=== PATIENT | female | born 1985 | race Caucasian/White ===

== ENCOUNTER → 2023-11-29 14:58 | Outpatient (REF) | payer BC, SELFPAY | LOC: RAD 14:58 | PROVIDERS: ATTENDING PHYSICIAN Physician Assistant; FAMILY PHYSICIAN Family Medicine | DX: M35.2 Behcet's disease (principal); M79.669 Pain in unspecified lower leg | CPT/HCPCS: 93970 ==

== ENCOUNTER 2023-12-04 14:08 | Emergency (ER) | payer BC, SELFPAY ==
[2023-12-04 14:18] VITALS: BP 132/80
--- NOTE | 2023-12-04 19:01 | ED.GENMED ---
History of Present Illness
General
Chief Complaint: Weakness
Source: patient
Exam Limitations: none
Time Seen by Provider: 12/04/23 18:42
Travel History
Have you had any contact with someone who has COVID-19?: No
Do you have any symptoms of coronavirus? Fever > 100 degrees, chills, cough, shortness of breath, sore throat, loss of taste or smell, muscle aches, or headache?: No
History of Present Illness
History of Present Illness:
This is a 38 year old female that comes in with multiple complaints. State that she has pain from her hips to her toes it aches. State that her arms hurt from her shoulders down and she is nauseated. States that she has chest discomfort like
tightness and she is SOB. States that this started last week. Patient went to see the PCP last Saturday and her Acquisition Specialist on Saturday. States that they did blood work and she was told that this was normal. States that the right sided feels worse
then the left. States that this does feel like when she had Lyme disease. States that she has been hot and cold. Chest tightness, SOB, nausea, headache and dizziness. Denies any fever, chills, abd pain, vomiting, diarrhea, urinary burning.
Past History
Past History
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
ED Past Surgical History: None
Social History
Tobacco: Former smoker
Alcohol: Occasional
Personal: Single
Living: with family
Family History
Family History: Diabetes
Review of Systems
Review of Systems
All Other Systems: ROS reviewed and negative except as documented in HPI and ROS
Constitutional: Reports other (Feels hot and cold); Denies fever or chills
EENT: Reports no symptoms
Respiratory: Reports trouble breathing; Denies cough
Cardiac: Reports chest pain (Tightness)
ABD/GI: Reports nausea; Denies abdominal pain, vomiting or diarrhea
: Reports no symptoms; Denies dysuria, frequency or urgency
Musculoskeletal: Reports other (arms and leg pain)
Skin: Reports no symptoms
Neurological: Reports dizzy and headache
Psychiatric: Reports no symptoms
Phy Exam
General Physical Exam
General Presentation: well appearing and no apparent distress
General age: appears stated age
General Skin: warm and dry
General Habitus: normal
General Mental: alert
General Hydration: appears well hydrated
ENT Exam
ENT Exam: TM's normal, pharynx normal and neck supple
Eye Exam
Eye Exam: PERRL and EOMI
Cardiovascular Exam
Cardiovascular Exam: regular rate/rhythm, no edema, no murmur and normal peripheral pulses
Pulmonary Exam
Pulmonary Exam: lungs clear, no respiratory distress, no rales, chest non tender, no crackles, no rhonchi, no wheezing and no cough
Gastrointestinal Exam
Gastrointestinal Exam: normal bowel sounds, non tender, soft, no organomegaly, no pulsatile mass and non distended
NIH Stroke Score
Level of Consciousness: 0 - Alert
LOC questions: 0-Answers both correctly
LOC Commands: 0-Performs both correctly
Best Gaze: 0-Normal
Visual Khan: 0=Normal, no visual loss
Facial palsy: 0=Normal, symmetrical
Motor - Right Arm: 0=No drift 10 seconds
Motor - Left Arm: 0=No drift 10 seconds
Motor - Right Le-No drift 5 seconds
Motor - Left Le-No drift 5 seconds
Limb Ataxia: 0-Absent
Sensation: 0-Normal
Best Language: 0-No aphasia
Dysarthria: 0-Normal
Extinction and Inattention: 0-No abnormality
Total Score:: 0
Musculoskeletal Exam
Musculoskeletal Exam: full ROM and no edema
Skin Exam
Skin Exam: normal color, warm/dry, no rash and no petechia
Psychiatric Exam
Psychiatric Exam: normal mood/affect
Course
Orders/Labs/Results
Orders:
Orders
12/04/23 19:00
CT Head W/o Iv Contrast Urgent
Comment:
Reason For Exam: Headache, dizziness,
Test Result ONCE
12/04/23 19:04
CR Chest - 2 Views Urgent
Comment:
Reason For Exam: SOB
12/04/23 19:05
Electrocardiogram (*1) Urgent
Reason for Study: Chest Pain
EKG- Treatment ONCE
12/04/23 19:11
Acetaminophen [Tylenol] 1,000 mg PO NOW STA
Ketorolac [Toradol] 30 mg IV NOW STA
12/04/23 19:15
CRP [C-Reactive Protein] Urgent
Complete Blood Count/With Diff Urgent
Comprehensive Metabolic Panel Urgent
D-Dimer Urgent
HCG, Serum Qualitative Screen Urgent
Lyme Progressive Urgent
Sed Rate [Erythrocyte Sed Rate] Urgent
12/04/23 19:41
Troponin I Urgent
Abnormal Lab Results
12/04/23
19:15
MPV 11.1 H fL
(7.4-10.4)
Potassium 3.4 L mmol/L
(3.5-5.1)
Glucose 129 H mg/dl
(70-99)
AST 41 H U/L
(14-36)
ALT 39 H U/L
(0-35)
12/04/23 19:15
12/04/23 19:15
Glucose nonfasting(patient is a diabetic), AST/ALT mildly elevated. Sed rate normal at 12, D-dimer normal <0.27, Troponin <0.012, CRP normal at <5.0. HCG negative.
Vital Signs
Initial and Last Documented VS:
Initial Vital Signs
Temp Pulse Resp BP Pulse Ox
98.4 F 92 18 132/80 98
12/04/23 14:18 12/04/23 14:18 12/04/23 14:18 12/04/23 14:18 12/04/23 14:18
Last Documented Vital Signs
Temp Pulse Resp BP Pulse Ox
98.4 F 92 18 132/80 98
12/04/23 14:18 12/04/23 14:18 12/04/23 14:18 12/04/23 14:18 12/04/23 14:18
MDM/Problems Addressed
Differential Diagnosis Includes:
Lyme disease flare,
MDM/Problems Addressed:
This is a 38 year old female that comes in with multiple complaints. States that for the past week she has arm and leg pain, gets hot and cold, Chest tightness, SOB, nausea, headache and dizziness. Patient has seen her PCP and her Acquisition Specialist.
Will check labs, CT head and give pain medication.
Back to see patient. Explained that her blood work is normal along with the CT of the head and chest x-ray. Patient has stated that she feels that this feels like her Lyme's. Offered patient antibiotic and if this make her feel better she can follow
up with the PCP in 2-3 days for further evaluation and full prescription for Antibiotic. Patient would like to try this. Patient to return with any concerns.
Chronic conditions affecting care: DM
Acute Exacerbation and/or Progression of Chronic Illness: Other (Lyme's disease)
*Radiology
Radiology exam reviewed: preliminary read by ED provider (Chest- Negative for any cardiopulmonary disease. ) and radiology read reviewed (Chest-Unremarkable exam CT head-No acute intracranial abnormality noted. )
*Pulse Oximetry
Patient hypoxic: no
*EKG
Interpreted by ED Provider?: Yes
Heart Rate: 87
Rate: normal
Rhythm: sinus
[place]: normal axis
Interval: normal interval
QRS Pattern: normal QRS
Ischemia: no ischemia
*Hand Twister Interpretation
Rate: Hand Twister- N/A
*Critical Care Note
Total Time (30-74mins, 75-104mins- exclusive of procedures): Not Applicable
ED Attending Note
-
Portions of this chart may have been created with voice recognition software.� Occasional wrong word or��sound alike� substitutions may have occurred due to the inherent limitations of voice recognition software.
Discharge Plan
Departure
Patient Disposition: Home (Routine Discharge)
Date of Disposition: 12/04/23
Time of Disposition: 22:01
Patient with high blood pressure during this ER visit?: Yes
Condition: Good
Covid-19: Not Applicable
Discharge Problem:
Generalized body aches
Instructions: Lyme Disease (DC), BLOOD PRESSURE
Prescriptions:
New
doxycycline hyclate 100 mg capsule
100 mg PO BID Qty: 20 0RF
No Action
Novolog Int.Commercial Credit Reviewer.Sp
0 pump SC PRN PRN (Reason: INSULIN PUMP)
Patient Comments:
patient is on insulin pump. She states she is on a basal rate of 20u a day. Averages about 35-60 units per day.
alprazolam [Xanax] 0.5 mg Tablet
0.5 mg PO PRN PRN (Reason: as directed)
Celexa
1 tab PO DAILY
Referrals:
NONE,* [Active] -
Activity Restrictions/Additional Instructions:
As discussed, your blood work shows that your liver enzymes are slightly elevated. Your Inflammatory markers are normal along with your chest x-ry and CT of the head. A lyme titer was sent and this is pending. However, you have states that this
feels like your lyme's disease. You have been given your first dose of antibiotic here. A prescription has been sent to your pharmacy. If this is lyme's disease you should noticed a difference in the next few days. Please follow up with the family
doctor as he would then have to give your another prescription for the full course of antibiotic. IF YOU HAVE ANY OTHER CONCERNS PLEASE RETURN TO THE EMERGENCY ROOM.
Interventions
Interventions:
*Risk Screen - Suicide Last Done: 12/04/23 14:18
*Neglect/Abuse Screening Last Done: 12/04/23 14:18
*ED COVID-19 Vaccine History Last Done: 12/04/23 14:18
ED- Cardiac Assessment Last Done: 12/04/23 19:37
ED- Neurological Assessment Last Done: 12/04/23 19:37
ED- Pulmonary Assessment Last Done: 12/04/23 19:37
Discharge Date and Time
Print Language: GREEK
[2023-12-04 19:21] LABS: % Basophils 0.4 % (0-2); % Eosinophils 2.1 % (0-6); % Immature Granulocytes 0.2 % (0-0.5); % Lymphocytes 29.4 % (20.5-51.1); % Monocytes 6.3 % (1.7-9.3); % Neutrophils 61.6 % (42.2-75.2); Absolute Eosinophils 0.2 10^3/uL (0-0.7); Absolute Lymphocytes 2.4 10^3/uL (1.2-3.4); Absolute Monocytes 0.5 10^3/uL (0.1-0.6); Hematocrit 39.4 % (37.0-47.0); Hemoglobin 13.4 g/dL (12.0-16.0); Mean Corpuscular Hgb 28.3 pg (27.0-31.0); Mean Corpuscular Volume 83.3 fL (81.0-99.0); Mean Platelet Volume 11.1 fL (7.4-10.4); Nucleated Red Blood Cells % 0 %; Platelet Count 226 10^3/uL (130-400); Red Blood Cell Count 4.73 10^6/uL (4.20-5.40); White Blood Cell Count 8.1 10^3/uL (4.8-10.8)
[2023-12-04] MEDS: TYLENOL 1000 MG PO (19:25)
[2023-12-04] MEDS: TORADOL 30 MG IV (19:26)
[2023-12-04 19:37] LABS: Erythrocyte Sed Rate 12 mm/hour (0-20)
[2023-12-04 19:38] LABS: HCG, Serum Qualitative Screen Negative
[2023-12-04 19:39] LABS: D-Dimer < 0.27 ug/mlFEU (0.00-0.50)
[2023-12-04 19:40] LABS: ALT (SGPT) 39 U/L (0-35); AST (SGOT) 41 U/L (14-36); Albumin 4.2 g/dl (3.5-5.0); Alkaline Phosphatase 93 U/L (38-126); Blood Urea Nitrogen 12 mg/dl (7-17); Calcium 9.4 mg/dl (8.4-10.2); Carbon Dioxide 29 mmol/L (22-30); Chloride 100 mmol/L (98-107); Glucose 129 mg/dl (70-99); Potassium 3.4 mmol/L (3.5-5.1); Sodium 136 mmol/L (135-145); Total Bilirubin 0.5 mg/dl (0.2-1.3); Total Protein 7.3 g/dl (6.3-8.2); eGFR > 60.00
[2023-12-04 19:43] LABS: C-Reactive Protein < 5.00 mg/L (0.0-10.00)
[2023-12-04 20:14] LABS: Troponin I < 0.012 ng/ml
[2023-12-04 22:10] VITALS: BP 102/66
[2023-12-04] MEDS: VIBRAMYCIN 100 MG PO (22:11)
[2023-12-05 15:57] LABS: Lyme Antibody Screen, EIA Negative (Negative)
== END 2023-12-04 22:12 | disposition home or self-care (01) ==
LOC: EMR 14:08
PROVIDERS: Clinical Nurse Specialist Family Health; EMERGENCY PHYSICIAN Emergency Medicine; FAMILY PHYSICIAN Family Medicine
DX: R52 Pain, unspecified (principal); R53.1 Weakness; J45.909 Unspecified asthma, uncomplicated; E11.9 Type 2 diabetes mellitus without complications; Z83.3 Family history of diabetes mellitus; Z87.891 Personal history of nicotine dependence
CPT/HCPCS: 99284; 96374; 70450; 71046; 80053; 84484; 84703; 85025; 85379; 85652; 86140; 86618; 93005

== ENCOUNTER 2024-03-30 14:53 | Emergency (ER) | payer BC, SELFPAY ==
[2024-03-30] VITALS (8 sets, daily range): BP systolic 92–127; BP diastolic 58–79; BMI 27.7
[2024-03-30 15:12] LABS: Glucose - Point of Care 235 mg/dl (70-99)
[2024-03-30 15:29] LABS: % Basophils 0.3 % (0-2); % Eosinophils 0.9 % (0-6); % Immature Granulocytes 0.4 % (0-0.5); % Lymphocytes 10.1 % (20.5-51.1); % Monocytes 5.5 % (1.7-9.3); % Neutrophils 82.8 % (42.2-75.2); Absolute Eosinophils 0.1 10^3/uL (0-0.7); Absolute Monocytes 0.6 10^3/uL (0.1-0.6); Absolute Neutrophils 8.3 10^3/uL (1.4-6.5); Hematocrit 37.6 % (37.0-47.0); Hemoglobin 12.8 g/dL (12.0-16.0); Mean Corpuscular Hgb 28.1 pg (27.0-31.0); Mean Corpuscular Volume 82.5 fL (81.0-99.0); Mean Platelet Volume 11.6 fL (7.4-10.4); Nucleated Red Blood Cells % 0 %; Platelet Count 221 10^3/uL (130-400); Red Blood Cell Count 4.56 10^6/uL (4.20-5.40); Red Cell Dist. Width 12.8 % (11.5-14.5)
[2024-03-30 15:37] LABS: ALT (SGPT) 21 U/L (0-35); AST (SGOT) 24 U/L (14-36); Albumin 4.4 g/dl (3.5-5.0); Alkaline Phosphatase 98 U/L (38-126); Blood Urea Nitrogen 15 mg/dl (7-17); Calcium 9.2 mg/dl (8.4-10.2); Carbon Dioxide 23 mmol/L (22-30); Chloride 100 mmol/L (98-107); Glucose 248 mg/dl (70-99); Sodium 136 mmol/L (135-145); Total Bilirubin 0.5 mg/dl (0.2-1.3); eGFR > 60.00
[2024-03-30 19:08] LABS: Lipase 63 U/L (23-300)
[2024-03-30] MEDS: ZOFRAN 4 MG IV (19:26)
[2024-03-30] MEDS: NSS 1000 IV (19:26)
[2024-03-30 19:52] LABS: TSH Reflex To Free T4 1.67 uIU/ml (0.47-4.68)
[2024-03-30 20:20] LABS: Glucose - Point of Care 78 mg/dl (70-99)
--- NOTE | 2024-03-30 21:54 | ED.GENMED ---
History of Present Illness
General
Chief Complaint: Blood Pressure Problem
Source: patient
Exam Limitations: none
Time Seen by Provider: 03/30/24 17:26
Nursing documentation reviewed up to this point in time: agreed with
History of Present Illness
History of Present Illness:
Patient is a 38-year-old female past medical history of diabetes ADHD anxiety depression presenting to the emergency department today with concerns of feeling confused at times of the past few days has noticed her sugars been somewhat erratic and
has had nausea. She started a new medication, Seroquel which she has taken a few times over the past few days as well that seem to make symptoms worse. She has noticed that her heart rate and blood pressure sometimes have been elevated at home as
well. Denies any chest pain shortness of breath numbness weakness nausea vomiting recent illness or fevers.
Past History
Past History
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
ED Past Surgical History: None
Social History
Tobacco: Former smoker
Alcohol: Occasional
Personal: Single
Living: with family
Family History
Family History: Diabetes
Review of Systems
Review of Systems
Allergies reviewed?: Yes
All Other Systems: ROS reviewed and negative except as documented in HPI and ROS
Phy Exam
Physical Exam
Physical Exam:
GENERAL: Alert , in no apparent distress
EYE: pupils equal and reactive
NECK: Supple, no significant adenopathy.
ENT: o/p clr, mmm.
CARDIAC: Regular rate and rhythm .
LUNGS: Clear breath sounds bilaterally, no acute respiratory distress, no wheezes/rales/rhonchi
ABDOMEN: Soft, without focal tenderness, no r/g, no cvat
NEUROLOGICAL: Alert and oriented, no focal neuro deficits 5 out of 5 upper and lower extremity strength normal sensation when palpating bilaterally normal finger-nose and [id number] no pronator drift
SKIN: Warm and dry, skin intact.
MUSCULOSKELETAL: No edema, well perfused.
PSYCH: Normal and appropriate interaction.
Course
Orders/Labs/Results
Orders:
Orders
03/30/24 15:14
Complete Blood Count/With Diff Urgent
Comprehensive Metabolic Panel Urgent
Lipase Urgent
Comment: ADD ON
TSH Reflex To Free T4 Urgent
Comment: ADD ON
03/30/24 18:32
Add On- LAB Urgent
Tests Added?: tsh free t4, lipase
EKG [Electrocardiogram (*1)] Urgent
Reason for Study: Fatigue / Weakness
EKG- Treatment ONCE
Urinalysis Reflex To Culture Urgent
Ondansetron Injectable [Zofran] 4 mg IV NOW STA
03/30/24 18:33
0.9% Sodium Chloride 1000 ml [Nss] 1,000 ml IV BOLUS
Abnormal Lab Results
03/30/24 03/30/24
15:07 15:14
MPV 11.6 H fL
(7.4-10.4)
Absolute Neuts (auto) 8.3 H 10^3/uL
(1.4-6.5)
Absolute Lymphs (auto) 1.0 L 10^3/uL
(1.2-3.4)
Neutrophils % 82.8 H %
(42.2-75.2)
Lymphocytes % 10.1 L %
(20.5-51.1)
Glucose 248 H mg/dl
(70-99)
POC Glucose 235 H mg/dl
(70-99)
03/30/24 15:14
03/30/24 15:14
Vital Signs
Initial and Last Documented VS:
Initial Vital Signs
Temp Pulse Resp BP Pulse Ox
98.3 F 110 18 127/79 98
03/30/24 15:08 03/30/24 15:08 03/30/24 15:08 03/30/24 15:08 03/30/24 15:08
Last Documented Vital Signs
Temp Pulse Resp BP Pulse Ox
98.3 F 74 13 98/67 98
03/30/24 15:08 03/30/24 22:06 03/30/24 22:06 03/30/24 22:06 03/30/24 22:06
MDM/Problems Addressed
MDM/Problems Addressed:
38-year-old female presenting to the emergency department today with concerns of intermittent confusion at home. Not seem to be confused here is fully alert and oriented following directions normally carry on with normal conversation here at normal
neurologic evaluation initially proving without specific treatment. Initial sugar level somewhat elevated in the 200s but otherwise no signs of DKA or did not electrolyte abnormalities. Normal EKG. Patient with no evidence of medical emergency no
indication for brain imaging at this time she was advised for close outpatient follow-up return precautions were given.
*Critical Care Note
Total Time (30-74mins, 75-104mins- exclusive of procedures): Not Applicable
ED Attending Note
-
Portions of this chart may have been created with voice recognition software.� Occasional wrong word or��sound alike� substitutions may have occurred due to the inherent limitations of voice recognition software.
Discharge Plan
Departure
Patient Disposition: Home (Routine Discharge)
Date of Disposition: 03/30/24
Time of Disposition: 21:54
Patient with high blood pressure during this ER visit?: No
Condition: Good
Covid-19: Not Applicable
Discharge Problem:
Confusion
Prescriptions:
No Action
Novolog Int.Insulation Board Calender Operator.Sp
0 pump SC PRN PRN (Reason: INSULIN PUMP)
Patient Comments:
patient is on insulin pump. She states she is on a basal rate of 20u a day. Averages about 35-60 units per day.
alprazolam [Xanax] 0.5 mg Tablet
0.5 mg PO PRN PRN (Reason: as directed)
Celexa
1 tab PO DAILY
doxycycline hyclate 100 mg capsule
100 mg PO BID Qty: 20 0RF
Referrals:
Xiao Garnett MD [Active] - Follow up in 5-7 days
Brody Bailey MD [Active] - Follow up in 5-7 days
Jaylen Herrera, DO [Family Provider] -
Activity Restrictions/Additional Instructions:
You came to the emergency department today with concerns of altered mentation. Here your assessment was reassuring medically. Please follow closely with your psychiatrist as well as neurology. Return to the emergency department any worsening, new
or concerning symptoms.
Interventions
Interventions:
*Risk Screen - Suicide Last Done: 03/30/24 15:08
*General Assessment Last Done: 03/30/24 19:00
*Neglect/Abuse Screening Last Done: 03/30/24 15:08
ED- Fall Risk Assessment Last Done: 03/30/24 19:00
*ED COVID-19 Vaccine History Last Done: 03/30/24 19:00
*Nursing Disposition Last Done: 03/30/24 22:09
ED- Pulmonary Assessment Last Done: 03/30/24 19:00
ED- Neurological Assessment Last Done: 03/30/24 19:00
ED- Cardiac Assessment Last Done: 03/30/24 19:00
Discharge Date and Time
Print Language: [place]
== END 2024-03-30 22:10 | disposition home or self-care (01) ==
LOC: EMR 14:53
PROVIDERS: EMERGENCY PHYSICIAN Emergency Medicine; FAMILY PHYSICIAN Family Medicine
DX: R41.0 Disorientation, unspecified (principal); E11.9 Type 2 diabetes mellitus without complications; F90.9 Attention-deficit hyperactivity disorder, unspecified type; F41.8 Other specified anxiety disorders; J45.909 Unspecified asthma, uncomplicated; Z83.3 Family history of diabetes mellitus; Z87.891 Personal history of nicotine dependence
CPT/HCPCS: 99283; 96374; 96361; 80053; 82962; 83690; 84443; 85025; 93005

== ENCOUNTER 2024-04-03 10:07 | Emergency (ER) | payer BC, SELFPAY ==
[2024-04-03 10:12] VITALS: BP 127/92
[2024-04-03 10:43] VITALS: BP 118/73
[2024-04-03 11:00] VITALS: BP 119/79
[2024-04-03 11:14] VITALS: BMI 27.4
[2024-04-03 11:40] LABS: % Basophils 0.4 % (0-2); % Eosinophils 0.9 % (0-6); % Immature Granulocytes 0.4 % (0-0.5); % Lymphocytes 19.7 % (20.5-51.1); % Monocytes 5.1 % (1.7-9.3); % Neutrophils 73.5 % (42.2-75.2); Absolute Eosinophils 0.1 10^3/uL (0-0.7); Absolute Lymphocytes 1.5 10^3/uL (1.2-3.4); Absolute Monocytes 0.4 10^3/uL (0.1-0.6); Absolute Neutrophils 5.5 10^3/uL (1.4-6.5); Hematocrit 40.6 % (37.0-47.0); Hemoglobin 14.1 g/dL (12.0-16.0); Mean Corp Hgb Conc. 34.7 g/dL (33.0-37.0); Mean Corpuscular Volume 83.5 fL (81.0-99.0); Nucleated Red Blood Cells % 0 %; Platelet Count 247 10^3/uL (130-400); Red Blood Cell Count 4.86 10^6/uL (4.20-5.40); Red Cell Dist. Width 12.8 % (11.5-14.5); White Blood Cell Count 7.4 10^3/uL (4.8-10.8)
[2024-04-03 11:53] LABS: ALT (SGPT) 20 U/L (0-35); AST (SGOT) 24 U/L (14-36); Albumin 4.8 g/dl (3.5-5.0); Alkaline Phosphatase 106 U/L (38-126); Blood Urea Nitrogen 15 mg/dl (7-17); Calcium 9.7 mg/dl (8.4-10.2); Carbon Dioxide 24 mmol/L (22-30); Chloride 102 mmol/L (98-107); Estimated Creatinine Clearance 110 ml/min; Glucose 189 mg/dl (70-99); Potassium 4.3 mmol/L (3.5-5.1); Sodium 138 mmol/L (135-145); Total Bilirubin 0.5 mg/dl (0.2-1.3); Total Protein 7.8 g/dl (6.3-8.2); eGFR > 60.00
[2024-04-03 12:00] VITALS: BP 117/75
[2024-04-03 12:03] LABS: Troponin I < 0.012 ng/ml
[2024-04-03 14:02] VITALS: BP 101/72
--- NOTE | 2024-04-03 15:43 | ED.GENMED ---
History of Present Illness
General
Chief Complaint: Dizziness
Source: patient and family (Mother)
Exam Limitations: none
Time Seen by Provider: 04/03/24 11:15
Nursing documentation reviewed up to this point in time: agreed with
History of Present Illness
History of Present Illness:
38-year-old female with past medical history of insulin diabetes presents to the emergency room for flulike syndrome over the past week. Patient reports myalgias, fatigue, lightheadedness, cough, sore throat, ear fullness and aching in the ears.
She reports she has had subjective fever and chills. She has had some brain fog. She also reports some chest discomfort that has been constant at least since yesterday. Denies any shortness of breath. Denies any GI symptoms. Denies any other
complaints. She does have a young son in school but no known sick contacts otherwise.
Past History
Past History
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
ED Past Surgical History: None
Social History
Tobacco: Former smoker
Alcohol: Occasional
Personal: Single
Living: with family
Family History
Family History: Diabetes
Review of Systems
Review of Systems
All Other Systems: ROS reviewed and negative except as documented in HPI and ROS
Constitutional: Reports fever, fatigue and chills
EENT: Reports sore throat
Respiratory: Reports cough; Denies trouble breathing
Cardiac: Reports chest pain; Denies palpitations
ABD/GI: Denies abdominal pain, nausea or vomiting
: Denies flank pain
Musculoskeletal: Reports muscle pain (Myalgias); Denies neck pain or back pain
Neurological: Reports dizzy
Phy Exam
Physical Exam
Physical Exam:
General: Awake, alert, oriented x3; no acute distress
Head: Normocephalic, atraumatic
Eyes: Conjunctiva normal, sclera anicteric
Ears: Some bulging and fullness of the left TM but no erythema
Throat: Airway intact, handling secretions, no significant tonsillar enlargement or exudate, moist mucous membranes
Neck: Trachea midline, supple without meningismus
Lungs: Faint left upper lung wheeze appreciated but lungs otherwise clear, normal respiratory rate, normal pulse ox
Heart: Regular rate and rhythm, no murmurs, gallops, or rubs
Abd: Soft, non distended, nontender
Neuro: No gross deficits
Skin: no rash
Extremities: No edema in extremities, equal pulses in all extremities
Scores
Heart Failure Risk
Heart Failure Risk Score: Not Applicable
Heart Score for Chest Pain Patients
STEMI patient?: Not applicable
Withdrawal Assessment of Alcohol
Withdrawal Assessment Completed?: Not applicable
Course
Orders/Labs/Results
Orders:
Orders
04/03/24 10:08
Electrocardiogram (*1) Urgent
Reason for Study: Chest Pain
04/03/24 10:09
EKG- Treatment ONCE
04/03/24 11:28
Complete Blood Count/With Diff Urgent
Comprehensive Metabolic Panel Urgent
Troponin I Urgent
04/03/24 11:38
CR Chest - 2 Views Urgent
Comment:
Reason For Exam: chest pain
Abnormal Lab Results
04/03/24
11:28
MPV 11.0 H fL
(7.4-10.4)
Lymphocytes % 19.7 L %
(20.5-51.1)
Glucose 189 H mg/dl
(70-99)
04/03/24 11:28
04/03/24 11:28
Vital Signs
Initial and Last Documented VS:
Initial Vital Signs
Temp Pulse Resp BP Pulse Ox
37.1 C 86 18 127/92 95
04/03/24 10:12 04/03/24 10:12 04/03/24 10:12 04/03/24 10:12 04/03/24 10:12
Last Documented Vital Signs
Temp Pulse Resp BP Pulse Ox
37.1 C 81 15 101/72 98
04/03/24 10:12 04/03/24 14:02 04/03/24 14:02 04/03/24 14:02 04/03/24 14:02
MDM/Problems Addressed
Differential Diagnosis Includes:
Viral syndrome, bronchitis, otitis, pneumonia
MDM/Problems Addressed:
38-year-old female presents for evaluation of flulike illness as above that she has had some chest discomfort over the past few days as well. Vitals normal, exam as above. She had an EKG which showed no acute ischemia. She had labs sent off
including a CBC and a CMP which were unremarkable. She had an undetectable troponin. Chest x-ray shows no acute disease. Suspect likely viral syndrome possibly with mild bronchitis given cough and some mild chest discomfort with a faint upper
lung wheeze on exam. She has normal vitals and only a faint wheeze on exam�hesitant to start steroid in an insulin-dependent diabetic who is already mildly hyperglycemic, recommended watchful waiting and supportive care with Tylenol/Motrin and
plenty of fluids. She also has some ear aching and has fullness of the left TM�will cover with antibiotics for possible otitis media. Stable for discharge, follow-up with PCP.
Chronic conditions affecting care:
Insulin-dependent diabetes impacted care as above
*Radiology
Radiology exam reviewed: preliminary read by ED provider (No acute disease) and radiology read reviewed
*Pulse Oximetry
Patient hypoxic: no
*EKG
Interpreted by ED Provider?: Yes
Heart Rate: 95
Rate: normal
Rhythm: sinus
[place]: normal axis
Interval: normal interval
QRS Pattern: normal QRS
Ischemia: no ischemia
*Critical Care Note
Total Time (30-74mins, 75-104mins- exclusive of procedures): Not Applicable
Data Reviewed
Review of Other/Old Records Reveals: Labs and Records
Source: patient and family
ED Attending Note
-
Portions of this chart may have been created with voice recognition software.� Occasional wrong word or��sound alike� substitutions may have occurred due to the inherent limitations of voice recognition software.
Discharge Plan
Departure
Patient Disposition: Home (Routine Discharge)
Date of Disposition: 04/03/24
Time of Disposition: 13:54
Patient with high blood pressure during this ER visit?: No
Discharge Problem:
Acute viral syndrome, Bronchitis, Otitis media
Instructions: Bronchitis, Adult ED, Fluid in the Ear ED
Prescriptions:
New
cefdinir 300 mg capsule
300 mg PO BID Qty: 14 0RF
No Action
Novolog Int.Supervisor Intermediates.Sp
0 pump SC PRN PRN (Reason: INSULIN PUMP)
Patient Comments:
patient is on insulin pump. She states she is on a basal rate of 20u a day. Averages about 35-60 units per day.
alprazolam [Xanax] 0.5 mg Tablet
0.5 mg PO PRN PRN (Reason: as directed)
Celexa
1 tab PO DAILY
doxycycline hyclate 100 mg capsule
100 mg PO BID Qty: 20 0RF
Referrals:
Jaylen Herrera DO [Family Provider] - Follow up in 5-7 days
Activity Restrictions/Additional Instructions:
Thank you for visiting the Emergency Department at [facility].
1. Please schedule a follow up appointment as directed. Call first thing tomorrow morning to make an appointment.
2. If indicated, please take your medications as instructed and indicated on discharge paperwork.
3. If any of your symptoms do not improve, or persist, or become more severe within 6-12 hours, please return to the emergency department for further care.
4. Please return to the emergency department if you develop a headache, neck pain/stiffness, fever greater than 100.4F, chest pain, shortness of breath, persistent nausea, vomiting, slurred speech, difficulty walking, numbness/tingling, weakness,
signs of infection or any other symptoms that are worrisome to you.
Please call [phone] if you have any questions.
Interventions
Interventions:
*Risk Screen - Suicide Last Done: 04/03/24 10:12
*General Assessment Last Done: 04/03/24 10:12
*Neglect/Abuse Screening Last Done: 04/03/24 10:12
ED- Fall Risk Assessment Last Done: 04/03/24 11:14
*ED COVID-19 Vaccine History Last Done: 04/03/24 11:14
*Nursing Disposition Last Done: 04/03/24 14:04
ED- Cardiac Assessment Last Done: 04/03/24 11:14
ED- Neurological Assessment Last Done: 04/03/24 11:14
ED Swallowing Screen Last Done: 04/03/24 11:14
Discharge Date and Time
Discharge Date/Time: 04/03/24 14:07
Print Language: [id number]
== END 2024-04-03 14:07 | disposition home or self-care (01) ==
LOC: EMR 10:07
PROVIDERS: EMERGENCY PHYSICIAN Emergency Medicine; FAMILY PHYSICIAN Family Medicine
DX: B34.9 Viral infection, unspecified (principal); J40 Bronchitis, not specified as acute or chronic; H66.90 Otitis media, unspecified, unspecified ear; M79.7 Fibromyalgia; R53.83 Other fatigue; R07.0 Pain in throat; J45.909 Unspecified asthma, uncomplicated; E11.65 Type 2 diabetes mellitus with hyperglycemia; Z87.891 Personal history of nicotine dependence; Z83.3 Family history of diabetes mellitus
CPT/HCPCS: 99283; 71046; 80053; 84484; 85025; 93005

== ENCOUNTER 2024-06-19 12:11 | Emergency (ER) | payer BC, OTHER, SELFPAY ==
--- NOTE | 2024-06-19 14:17 | ED.GENMED ---
History of Present Illness
<Jerod Kam DO, Resident - Last Filed: 06/19/24 14:50>
General
Chief Complaint: Oral/Mouth Problem
Time Seen by Provider: 06/19/24 14:02
History of Present Illness
History of Present Illness:
39-year-old female with a past medical history of Behcet's disease, diabetes mellitus type 1 with insulin pump, ADHD, anxiety, depression presents for mouth pain of 3 to 4 weeks in duration. She reports pain is in every part of her mouth, gums lips
teeth and tongue. She reports no fever, was previously able to eat or drink over the last 2 days pain was too intolerable for her to eat or drink regularly. Patient reports having breakouts of canker sores throughout her mouth and tongue, which
are resolving and relapsing. 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
colchicine.
Past History
<Jerod Kam DO, Resident - Last Filed: 06/19/24 14:50>
Past History
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
ED Past Surgical History: None
Social History
Tobacco: Former smoker
Alcohol: Occasional
Personal: Single
Living: with family
Family History
Family History: Diabetes
Review of Systems
<Jerod Kam DO, Resident - Last Filed: 06/19/24 14:50>
Review of Systems
Constitutional: Reports no symptoms; Denies fever
EENT: Reports mouth pain
Respiratory: Reports no symptoms
Cardiac: Reports no symptoms
ABD/GI: Reports abdominal pain
Musculoskeletal: Reports no symptoms
Phy Exam
<Jerod Kam DO, Resident - Last Filed: 06/19/24 14:50>
General Physical Exam
General Presentation: well appearing
ENT Exam
ENT Exam: other (Canker sore present on tip of tongue, no other sores present throughout mouth. Mouth normal appearing besides solitary canker sore)
Cardiovascular Exam
Cardiovascular Exam: regular rate/rhythm, no edema and no murmur
Pulmonary Exam
Pulmonary Exam: lungs clear and no respiratory distress
Gastrointestinal Exam
Gastrointestinal Exam: soft, non distended and tender (Tender to deep palpation in right lower quadrant)
Course
<Jerod Kam DO, Resident - Last Filed: 06/19/24 14:50>
Orders/Labs/Results
Orders:
Orders
06/19/24 14:55
Lidocaine Visc/Maalox/Benadryl [Magic or Miracle Mouthwash] 5 ml PO NOW STA
06/19/24 16:00
Prednisone [Deltasone] 40 mg PO NOW STA
Vital Signs
Initial and Last Documented VS:
Initial Vital Signs
Temp Pulse Resp Pulse Ox
98.4 F 99 20 98
06/19/24 12:14 06/19/24 12:14 06/19/24 12:14 06/19/24 12:14
Last Documented Vital Signs
Temp Pulse Resp BP Pulse Ox
98.4 F 87 16 105/71 98
06/19/24 12:14 06/19/24 14:49 06/19/24 14:49 06/19/24 14:49 06/19/24 12:14
Vellt;Johnathan Paula DO - Last Filed: 06/19/24 20:22>
Orders/Labs/Results
Orders:
Orders
06/19/24 14:55
Lidocaine Visc/Maalox/Benadryl [Magic or Miracle Mouthwash] 5 ml PO NOW STA
06/19/24 16:00
Prednisone [Deltasone] 40 mg PO NOW STA
Vital Signs
Initial and Last Documented VS:
Initial Vital Signs
Temp Pulse Resp Pulse Ox
98.4 F 99 20 98
06/19/24 12:14 06/19/24 12:14 06/19/24 12:14 06/19/24 12:14
Last Documented Vital Signs
Temp Pulse Resp BP Pulse Ox
98.4 F 87 16 105/71 98
06/19/24 12:14 06/19/24 14:49 06/19/24 14:49 06/19/24 14:49 06/19/24 12:14
<Jerod Kam DO, Resident - Last Filed: 06/19/24 14:50>
MDM/Problems Addressed
Differential Diagnosis Includes:
Acute Behcet's disease flare, vitamin deficiency, burning mouth syndrome (glossodynia), occult HIV infection, oral herpes
MDM/Problems Addressed:
39 female past history of Behcet's disease with mouth pain and canker sores approximately 4 weeks in duration
Patient reports taking colchicine previously for her Behcet's, and is followed by [facility]
Colchicine was discontinued, per patient, due to diffuse bruising present throughout her body
Rheumatology did not start her on any other disease controlling medications
Will reach out to rheumatology and ask for any recommendations regarding her acute Behcet's disease flare
Symptomatic management with Magic mouthwash
<Jerod Kam DO, Resident - Last Filed: 06/19/24 14:50>
*Critical Care Note
Total Time (30-74mins, 75-104mins- exclusive of procedures): Not Applicable
ED Attending Note
<Jerod Kam DO, Resident - Last Filed: 06/19/24 14:50>
-
Portions of this chart may have been created with voice recognition software.� Occasional wrong word or��sound alike� substitutions may have occurred due to the inherent limitations of voice recognition software.
<Johnathan Paula DO - Last Filed: 06/19/24 20:22>
ED Attending Note
Patient seen and examined by attending physician: Yes
I performed a history and physical exam of patient and discussed management with resident, I reviewed resident's note and agree with documented findings and plan of care.: Yes
ED Attending Note:
I agree with the residents note
Patient presents complaining of mouth pain. She is been having oral ulcers that are continuously developing. As some heel others appear. She has been diagnosed with Bechets syndrome in the past. She was prescribed colchicine but stopped taking
it due to intolerance. Intolerance was frequent bruising. Patient denies any genital ulcers. No other complaints.
General: Awake, Alert, Oriented X3. No acute distress.
Vitals: unremarkable
Head: Atraumatic
Eyes: Pupils equal, EOMI
Mouth\\throat: Airway intact, no exudates, small ulceration noted to tip of tongue. No other ulcers at this time.
Neck: Trachea midline
Lungs: Clear and equal b/l
Heart: Regular rate, no murmurs
Abd: Soft, Nontender, No pulsatile mass
Neuro: Grossly nonfocal
Discussed with rheumatology. Suggest starting a taper of steroids. Prescription for this sent to the pharmacy.
Discharge Plan
Departure
Patient Disposition: Home (Routine Discharge)
Date of Disposition: 06/19/24
Time of Disposition: 16:01
Patient with high blood pressure during this ER visit?: No
Condition: Good
Discharge Problem:
Oral ulceration, Behcet syndrome involving oral mucosa
Instructions: Behcet Syndrome (DC)
Prescriptions:
New
prednisone 10 mg tablet
10 mg PO DIRECTED Qty: 18 0RF
Rx Instructions:
3 tablets a day for three days, 2 tablets a day for 3 days then 1 tablet a day for 3 days
sucralfate [Carafate] 100 mg/mL suspension
5 ml PO QID PRN (Reason: oral ulcers) Qty: 1000 0RF
Rx Instructions:
swish around in mouth and swallow
No Action
Novolog Int.Brazing Machine Feeder.Sp
0 pump SC PRN PRN (Reason: INSULIN PUMP)
Patient Comments:
patient is on insulin pump. She states she is on a basal rate of 20u a day. Averages about 35-60 units per day.
alprazolam [Xanax] 0.5 mg Tablet
0.5 mg PO PRN PRN (Reason: as directed)
Celexa
1 tab PO DAILY
doxycycline hyclate 100 mg capsule
100 mg PO BID Qty: 20 0RF
cefdinir 300 mg capsule
300 mg PO BID Qty: 14 0RF
Referrals:
UNKNOWN - PT DOES,NOT KNOW [Family Provider] -
Interventions
Interventions:
*Risk Screen - Suicide Last Done: 06/19/24 12:14
*Neglect/Abuse Screening Last Done: 06/19/24 12:14
*Nursing Disposition Last Done: 06/19/24 16:19
Discharge Date and Time
Discharge Date/Time: 06/19/24 16:20
Print Language: PORTUGUESE
[2024-06-19 14:49] VITALS: BP 105/71
[2024-06-19] MEDS: MAGIC OR MIRACLE MOUTHWASH 5 ML PO (15:12)
[2024-06-19] MEDS: DELTASONE 40 MG PO (16:08)
== END 2024-06-19 16:20 | disposition home or self-care (01) ==
LOC: EMR 12:11
PROVIDERS: EMERGENCY PHYSICIAN Emergency Medicine
DX: K13.79 Other lesions of oral mucosa (principal); M35.2 Behcet's disease; E10.9 Type 1 diabetes mellitus without complications; F90.9 Attention-deficit hyperactivity disorder, unspecified type; F41.8 Other specified anxiety disorders; J45.909 Unspecified asthma, uncomplicated; K12.1 Other forms of stomatitis; Z79.4 Long term (current) use of insulin; Z83.3 Family history of diabetes mellitus; Z87.891 Personal history of nicotine dependence
CPT/HCPCS: 99282

== ENCOUNTER → 2024-08-25 15:18 | Outpatient (REF) | payer OTHER, SELFPAY | LOC: HWRAD 15:18 | DX: R10.84 Generalized abdominal pain (principal) | CPT/HCPCS: 74018 ==

== ENCOUNTER → 2024-09-04 07:58 | Outpatient (REF) | payer OTHER, SELFPAY | LOC: HWRAD 07:58 | DX: R52 Pain, unspecified (principal); R10.84 Generalized abdominal pain; M35.2 Behcet's disease; R10.813 Right lower quadrant abdominal tenderness; R10.32 Left lower quadrant pain | CPT/HCPCS: 76700; 93975 ==